=== PATIENT | female | born 1995 | race Hispanic/Latino ===

== ENCOUNTER 2017-01-06 11:01 | Inpatient (IN) | payer OTHER ==
[~2017-01-06] VITALS: Ht 162.6 cm; Wt 70.8 kg
[~2017-01-06 11:01] MED LIST: A/B OTIC 54 MG/15 ML OTIC; CIPRODEX 0.3%-7.5 ML OTIC; TRIAMCINOL0.1 %/453 TOP; VITAFOL ULTRA1 EACH PO
[2017-01-06 13:56] LABS: ABSOLUTE BASOPHIL COUNT 0 /CUMM (0.0-0.2); ABSOLUTE EOSINOPHIL COUNT 0.1 /CUMM (0.0-0.7); ABSOLUTE GRANULOCYTE CT 7.8 /CUMM (1.4-6.5); ABSOLUTE LYMPH COUNT 1.1 /CUMM (1.2-3.4); ABSOLUTE MONOCYTE COUNT 0.7 /CUMM (0.10-0.60); BASOPHIL % 0.3 % (0.0-2.0); EOSINOPHIL % 0.6 % (0-5); GRANULOCYTE % 80.2 % (42.2-75.2); HEMATOCRIT 32.7 % (37-47); MEAN CORPUSCULAR HGB 27.7 PG (27.0-31.0); MEAN CORPUSCULAR VOLUME 84.1 FL (81.0-99.0); MEAN PLATELET VOLUME 8.6 FL (7.4-10.4); PLATELET COUNT 212 /CUMM (130-400); RBC DISTRIBUTION WIDTH 15.6 % (11.5-14.5); RED BLOOD CELL CT 3.89 /CUMM (4.20-5.40); WHITE BLOOD CELL COUNT 9.8 /CUMM (4.8-10.8)
--- NOTE | 2017-01-06 17:09 | History & Physical ---
General Information and HPI MD Statement: I have seen and personally examined MI WRIGHT and documented this H&P. The patient is a 21 year old female at [36] weeks and [3] days gestation who presented with a chief complaint of LOF[]. Source of Information: police History of Present Illness: 21yo G1 lmp 04/26/17 edc 01/31/17 at 36w3d presents w LOF 3:30am clear. Amnisure positive. PNC complete. 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 EENTM: Reports: no symptoms. Cardiovascular: Reports: no symptoms. Respiratory: Reports: no symptoms. GI: Reports: no symptoms. Genitourinary: Reports: see HPI. Musculoskeletal: Reports: no symptoms. Skin: Reports: no symptoms. Neurological/Psychological: Reports: no symptoms. Hematologic/Endocrine: Reports: no symptoms. Immunologic/Allergic: Reports: no symptoms. All Other Systems: Reviewed and Negative Exam & Diagnostic Data Obstetric Exam Wgt Gained During : 30 Pelvimetry: gynecoid Dilation (cm): 1 Effacement (%): 50 Station: 0 Membranes: SROM Fluid: clear Fundal Height (cm): 36 Multiple Gestation? No Contractions: none #1 - FHR Baseline: 150 Category: 1 Estimated Weight: 6 Presentation: cephalic Patient for Induction? Yes Vera Score Vera Score Response Value Cervix Position: mid-position 1 Cervix Consistency: medium 1 Cervix Effacement: 30-50% 1 Cervix Dilation: 1-2 cm 1 Cervix Station: -1 2 Total 6 Physical Exam: HEENT: NCAT Chest: CTA CV: nl S1S2 Abd: gravid, cephalic 6 linsey Ext: no c/c/e Labs Blood Type & Rh: O pos Antibody Screen: neg Hct/Hgb & Platelets #1: Hct/Hgb & Platelets #2: Rubella: imm VDRL #1: nr VDRL #2: nr HbsAg: neg HIV #1: neg HIV #2 neg 1 Hr P Group B Strep: neg Initial Ultrasound: wnl Anatomy Ultrasound: wnl Ultrasound for EFW: n/a Genetic Testing: neg Last 24 Hrs of Labs/Aric: Laboratory Tests 01/06/17 1156: CBC w Diff NO MAN DIFF REQ, RBC 3.89 L, MCV 84.1, MCH 27.7, RDW 15.6 H, MPV 8.6, Gran % 80.2 H, Lymphocytes % 11.2 L, Monocytes % 7.7, Eosinophils % 0.6, Basophils % 0.3, Absolute Granulocytes 7.8 H, Absolute Lymphocytes 1.1 L, Absolute Monocytes 0.7 H, Absolute Eosinophils 0.1, Absolute Basophils 0, PUBS MCHC 33.0 01/06/17 1110: Membrane Rupture POSITIVE, Urine Color STRAW, Urine Clarity CLEAR, Urine pH 7.0, Ur Specific [place] 1.010, Urine Protein NEG, Urine Ketones NEG, Urine Nitrite NEG, Urine Bilirubin NEG, Urine Urobilinogen 0.2, Ur Leukocyte Esterase NEG, Ur Microscopic EXAM NOT REQUIRED, Urine Hemoglobin NEG, Urine Glucose NEG 01/06/17 1100: Urine Opiates Screen < 100.00, Methadone Screen < 40, Barbiturate Screen < 60, Ur Phencyclidine Scrn < 6.00, Amphetamines Screen < 100, U Benzodiazepines Scrn < 85, Urine Cocaine Screen < 50, Urine Cannabis Screen < 5.00 Assessment/Plan Assessment/Plan: 36w3d PPROM expectant mgmt As Ranked By This Provider Problem List: 1. Core Measures/Miscellaneous Venous Thromboembolism VTE Risk Factors: / VTE Contraindications: No Contraindications VTE Diagnosis: No Beta Sussy Is Beta Sussy a Home Med? No Antibiotics Is Patient on Antibiotics? No
--- NOTE | 2017-01-07 19:35 | Labor & Delivery Summary ---
Delivery Summary Vaginal Delivery: Vaginal: vertex Episiotomy/Lacerations: Episiotomy/Lacerations: EPIS Type: RML Repair: 3-0 LAYERED Anesthesia: EPILOCAL Placenta: Placenta: spontanteous, normal, 3 vessel Anesthesia: block Baby's Weight: P STS Apgars - 1 Min: 9 Apgars - 5 Min: 9
[2017-01-07 20:40] VITALS: BP 125/78
[2017-01-08 08:51] LABS: ABSOLUTE BASOPHIL COUNT 0 /CUMM (0.0-0.2); ABSOLUTE EOSINOPHIL COUNT 0 /CUMM (0.0-0.7); ABSOLUTE GRANULOCYTE CT 10.7 /CUMM (1.4-6.5); ABSOLUTE LYMPH COUNT 1.4 /CUMM (1.2-3.4); ABSOLUTE MONOCYTE COUNT 1.1 /CUMM (0.10-0.60); BASOPHIL % 0.2 % (0.0-2.0); EOSINOPHIL % 0.2 % (0-5); HEMATOCRIT 29.8 % (37-47); MEAN CORPUSCULAR HGB 27.8 PG (27.0-31.0); MEAN CORPUSCULAR HGB CONC 33.3 G/DL (33.0-37.0); MEAN CORPUSCULAR VOLUME 83.4 FL (81.0-99.0); MEAN PLATELET VOLUME 8.3 FL (7.4-10.4); PLATELET COUNT 189 /CUMM (130-400); RBC DISTRIBUTION WIDTH 15.4 % (11.5-14.5); RED BLOOD CELL CT 3.57 /CUMM (4.20-5.40); WHITE BLOOD CELL COUNT 13.2 /CUMM (4.8-10.8)
--- NOTE | 2017-01-08 23:03 | PN- Post Delivery/GYN ---
Subjective Subjective: no c/o Review of Systems: neg Objective Last 24 Hrs of Vital Signs/I&O vss Physical Exam: ff ext nt Assessment/Plan Assessment/Plan s/p ppd1 stable Problem List: 1.
[2017-01-08] MEDS ORDERED: IBUPROFEN800 M1 PO (23:05)
[2017-01-08] MEDS ORDERED: DOCUSATE SODIU100 M3 PO (23:05)
== END 2017-01-09 12:32 | DRG 560 ==
LOC: CBCO 11:01 → GNO 11:27
PROVIDERS: ADMIT Obstetrics & Gynecology
PROC: 0W8NXZZ Division of Female Perineum, External Approach (ICD-10-PCS; principal; 2017-01-07)
PROC: 10E0XZZ Delivery of Products of Conception, External Approach (ICD-10-PCS; principal; 2017-01-07)
DX: O60.14X0 Preterm labor third trimester with preterm delivery third trimester, not applicable or unspecified (principal); Z3A.36 36 weeks gestation of pregnancy; Z37.0 Single live birth
CPT/HCPCS: GNOP; GNOS; 80307; 81003; 84112; 87086; G0463; J0131; J0290; J1885; J7120